=== PATIENT | female | born 1980 | race Caucasian/White ===

== ENCOUNTER 2016-07-14 16:13 | Emergency (ER) | END 2016-07-14 20:02 | disposition home or self-care (01) | DX: J45.901 Unspecified asthma with (acute) exacerbation (principal); E11.9 Type 2 diabetes mellitus without complications | CPT/HCPCS: 94664; Z7502; Z7610 ==

== ENCOUNTER 2016-08-29 23:14 | Emergency (ER) | payer OTHER ==
[~2016-08-29] VITALS: Ht 157.5 cm; Wt 100.0 kg
[~2016-08-29 23:14] MED LIST: ALBU2.5V3 NEB; ALBU8.5H3 INH; NEBU1KIT17 MC
[2016-08-29 23:22] VITALS: Ht 157.5 cm; Wt 100.0 kg
[2016-08-30] MEDS ORDERED: KETOROLAC 30 MG INJ IM STA (01:34)
[2016-08-30] MEDS ORDERED: OSLT75C PO (02:20)
[2016-08-30] MEDS ORDERED: IBUP-1542 PO (02:20)
[2016-08-30] MEDS ORDERED: NPH10OT BOTH EARS (02:20)
--- NOTE | 2016-08-30 02:30 | ERD ---
ER Documentation Chief Complaint Date/Time DATE: 08/30/16 TIME: 02:23 Chief Complaint Bilateral ear pain today HPI Patient is a 35-year-old female with past medical history of diabetes who presents to the emergency department with bilateral ear pain. Patient states that her pain started earlier this evening. Patient describes the pain to be constant, 10 out of 10. Patient describes the pain to be throbbing in nature. Patient states she last took Tylenol at 5 PM. Patient also reports some clear nasal rhinorrhea. Patient states she has a dry cough. She also reports headache. Patient denies sudden onset. Patient denies any blurry vision, nausea, vomiting, abdominal pain, diarrhea loss of consciousness. Patient also complaining of generalized body aches. Patient states many individuals in her family are currently sick. No recent travel. Of note, patient went to the urgent care facility a few hours ago. She states that she was given a prescription for Z-Jorge, Cortisporin eardrops, tramadol. Patient states she was told that she had high blood pressure thus she did not believe what the urgent care physician told her and decided to come to the ER. ROS All systems reviewed and are negative except as per history of present illness. Medications Home Meds Active Scripts Neomycin/Polymyxin/Hydrocort* (Cortisporin* Otic) 10 Ml Susp, 4 DROP BOTH EARS QID for 7 Days, EA Prov:SHANA LEVY PA-C 08/30/16 Ibuprofen* (Motrin*) 600 Mg Tab, 600 MG PO Q6, #30 TAB Prov:SHANA LEVY PA-C 08/30/16 Oseltamivir Phosphate* (Tamiflu*) 75 Mg Capsule, 75 MG PO BID for 5 Days, CAP Prov:SHANA LEVY PA-C 08/30/16 Albuterol Sulfate* (Albuterol Sulfate* Neb) 0.083%-3 Ml Neb, 2.5 MG NEB Q4 Y for SHORTNESS OF BREATH, #30 EA Prov:JUAN F PETER PA-C 07/14/16 Nebulizer (Justinminds Disposable Nebulizer) 1 Each Each, 1 EACH MC, #1 Prov:JUAN F PETER PA-C 07/14/16 Albuterol Sulfate* (Proair HFA*) 8.5 Gm Hfa.aer.ad, 2 PUFF INH Q4, #1 INHALER Prov:JUAN F PETER BERTIN 07/14/16 Allergies Allergies: Coded Allergies: Penicillins (Verified Allergy, Unknown, 08/30/16) PMhx/Soc History of Surgery: No Anesthesia Reaction: No Hx Neurological Disorder: No Hx Respiratory Disorders: No Hx Cardiac Disorders: No Hx Psychiatric Problems: No Hx Miscellaneous Medical Probl: Yes (DM) Hx Alcohol Use: No Hx Substance Use: No Hx Tobacco Use: No Smoking Status: Never smoker FmHx Family History: diabetes Physical Exam Vitals Vital Signs Date Time Temp Pulse Resp B/P Pulse Ox O2 Delivery O2 Flow Rate FiO2 08/29/16 23:22 98.1 92 18 138/71 98 Physical Exam GENERAL: Well-developed, well-nourished female. Appears in no acute distress. HEAD: Normocephalic, atraumatic. No deformities or ecchymosis. EYE: Pupils equal, round, and reactive to light. EOMs intact. No conjunctival erythema. No eye discharge. ENT: External ear without any masses or tenderness. Bilateral auditory canals noted to be erythematous. Bilateral tympanic membranes erythematous. Nasal mucosa pink with no discharge. Oropharynx is pink without any tonsillar erythema or exudates. No uvula deviation. No kissing tonsils. Tender to palpation of bilateral mastoid processes. Patient is able to open and close her mouth without any difficulty. NECK: Supple. No meningismus. Normal ROM of the neck. LUNG: Clear to auscultation bilaterally. No rhonchi, wheezing, rales or coarse breath sounds. HEART: Regular rate and rhythm. No murmurs, rubs or gallops. BACK: No midline tenderness. EXTREMITES: Equal pulses bilaterally. No peripheral clubbing, cyanosis or edema. No unilateral leg swelling. NEUROLOGIC: Alert and oriented to person, place and time. Moving all four extremities. 5/5 strength in all extremities. Normal speech. Steady gait. Negative Brudzinski sign. Negative Kernig sign. SKIN: Normal color. Warm and dry. No rashes or lesions. Results 24 hrs Current Medications Medications (Trade) Dose Ordered Sig/Raj Route PRN Reason Start Time Stop Time Status Last Admin Dose Admin Ketorolac Tromethamine (Toradol) 30 mg ONCE STAT IM 08/30/16 01:34 08/30/16 01:35 DC 08/30/16 01:52 Procedures/MDM MEDICAL DECISION MAKING: This is a 35-year-old female who presents to the ER with bilateral ear pain, nasal rhinorrhea, body aches and a headache started earlier today. Patient stated that there are numerous sick individuals in her family. Vital signs were reviewed. Patient was afebrile. Patient was not hypoxic. ENT exam revealed erythema of bilateral tympanic membranes, no bulging noted bilaterally. Lung exam was normal. Given these findings, the patient's presentation is most consistent with influenza. I have a much lower clinical concern for pneumonia, meningitis, sinusitis, otitis externa, acute otitis media , strep pharyngitis, epiglottitis or peritonsillar abscess. Given that patient presents 48 hours within the onset of her symptoms. Patient will be prescribed Tamiflu. PRESCRIPTIONS: Ibuprofen, Cortisporin eardrops, Tamiflu DISCHARGE: At this time, patient is stable for discharge and outpatient management. Supportive therapies such as OTC throat lozenges, salt water gurgles, popsicles and jello discussed. I have instructed the patient to follow-up with his/her primary care physician in 1-2 days. I have instructed the patient to promptly return to the ER for any new or worsening symptoms including increased pain, swelling, fever, nausea, vomiting, weakness or difficulty breathing. The patient and/or family expressed understanding of and agreement with this plan. All questions were answered. Home care instructions were provided. Departure Diagnosis: Primary Impression: Influenza Additional Impression: Ear pain Laterality: bilateral Qualified Code: H92.03 - Ear pain, bilateral Condition: Stable Patient Instructions: Influenza (Adult) Referrals: [facility] YOU HAVE RECEIVED A MEDICAL SCREENING EXAM AND THE RESULTS INDICATE THAT YOU DO NOT HAVE A CONDITION THAT REQUIRES URGENT TREATMENT IN THE EMERGENCY DEPARTMENT. FURTHER EVALUATION AND TREATMENT OF YOUR CONDITION CAN WAIT UNTIL YOU ARE SEEN IN YOUR DOCTORS OFFICE WITHIN THE NEXT 1-2 DAYS. IT IS YOUR RESPONSIBILITY TO MAKE AN APPOINTMENT FOR FOLOW-UP CARE. IF YOU HAVE A PRIMARY DOCTOR --you should call your primary doctor and schedule an appointment IF YOU DO NOT HAVE A PRIMARY DOCTOR YOU CAN CALL OUR PHYSICIAN REFERRAL HOTLINE AT IF YOU CAN NOT AFFORD TO SEE A PHYSICIAN YOU CAN CHOSE FROM THE FOLLOWING [facility] [address] [facility]. [facility]818) [phone] [facility]. [facility] [address] [facility] [address] [facility] [facility] [address] [facility]. [facility]. [address] [facility]. [facility] YOU HAVE RECEIVED A MEDICAL SCREENING EXAM AND THE RESULTS INDICATE THAT YOU DO NOT HAVE A CONDITION THAT REQUIRES URGENT TREATMENT IN THE EMERGENCY DEPARTMENT. FURTHER EVALUATION AND TREATMENT OF YOUR CONDITION CAN WAIT UNTIL YOU ARE SEEN IN YOUR DOCTORS OFFICE WITHIN THE NEXT 1-2 DAYS. IT IS YOUR RESPONSIBILITY TO MAKE AN APPOINTMENT FOR FOLOW-UP CARE. IF YOU HAVE A PRIMARY DOCTOR --you should call your primary doctor and schedule and appointment IF YOU DO NOT HAVE A PRIMARY DOCTOR YOU CAN CALL OUR PHYSICIAN REFERRAL HOTLINE AT . IF YOU CAN NOT AFFORD TO SEE A PHYSICIAN YOU CAN CHOSE FROM THE FOLLOWING [facility] INSTITUTIONS: [facility] [address] [place] [address] [facility] [address] [place] [address] [facility] [address] [place] [address] Additional Instructions: Call your primary care doctor TOMORROW for an appointment during the next 1-2 days.See the doctor sooner or return here if your condition worsens before your appointment time. SHANA LEVY PA-C Aug 30, 2016 02:30
[2016-08-30 02:55] VITALS: PULSE 89; RESP 16; TEMP 98.3
== END 2016-08-30 02:56 | disposition home or self-care (01) ==
LOC: FTE 23:14
DX: J10.1 Influenza due to other identified influenza virus with other respiratory manifestations (principal); H92.03 Otalgia, bilateral; E11.9 Type 2 diabetes mellitus without complications
CPT/HCPCS: 96372; J1885; Z7502